=== PATIENT | male | born 1975 | race African-American/Black ===

== ENCOUNTER 2019-08-31 06:45 | Emergency (ER) | payer MEDICAID ==
[~2019-08-31] VITALS: Ht 172.7 cm; Wt 68.2 kg
[2019-08-31 06:57] VITALS: Ht 172.7 cm; Wt 68.2 kg
[2019-08-31 07:15] LABS: BASOPHILS 0.2 % (0-2); EOSINOPHILS 2.3 % (0-7); HEMOGLOBIN 14.8 g/dL (13.5-17.5); IMMATURE GRANULOCYTES 0.2 % (0-5); LYMPHOCYTES 30.9 % (15-50); MCHC 34.4 g/dL (31.0-37.0); MCV 92.9 fL (80.0-100.0); MEAN PLATELET VOLUME 10.5 fL (7.4-10.4); MONOCYTES 15.1 % (2-11); NEUTROPHILS 51.3 % (40-80); PLATELET COUNT 187 10x3/uL (130-400); RBC 4.63 10x6/uL (4.20-6.10); RDW 13.6 % (11.5-14.5); WBC 4.8 10x3/uL (4.8-10.8)
[2019-08-31 07:35] LABS: BILIRUBIN NEGATIVE (NEGATIVE); GLUCOSE NEGATIVE (NEGATIVE); KETONE NEGATIVE (NEGATIVE); NITRITE NEGATIVE (NEGATIVE); UROBILINOGEN 4 mg/dL (NORMAL)
[2019-08-31 07:38] LABS: BACTERIA FEW /hpf (NEGATIVE); CALCIUM OXALATE CRYSTALS 0-5 /hpf (NONE SEEN); RED CELLS - URINE 25-50 /hpf (0-5); WHITE CELLS - URINE RARE /hpf (NEGATIVE)
[2019-08-31 07:44] LABS: CALC OSMOLALITY 281 mosm/kg (275-300); CALCIUM 8.5 mg/dL (8.5-10.1); CHLORIDE - SERUM 106 mmol/L (98-107); CREATININE - SERUM 1.4 mg/dL (0.6-1.3); GLUCOSE 106 mg/dL (74-106); POTASSIUM - SERUM 3.2 mmol/L (3.5-5.1); SODIUM 141 mmol/L (136-145); UREA NITROGEN 16 mg/dL (7-18); eGFR NON AFRICAN AMERICAN 59 mL/min (90-120)
[2019-08-31 07:53] LABS: ALKALINE PHOSPHATASE 95 U/L (30-120); ALT (SGPT) 135 U/L (10-68); AMYLASE - SERUM 64 U/L (25-115); BILIRUBIN - TOTAL 0.56 mg/dL (0.2-1.3); LIPASE 137 U/L (73-393); TROPONIN-I < 0.017 ng/mL (0.000-0.060)
[2019-08-31] MEDS ORDERED: ZOFRAN ODT4 MG/UDTAB PO (09:55)
[2019-08-31 09:58] VITALS: BP 142/89
== END 2019-08-31 09:59 | disposition home or self-care (01) ==
LOC: D.ER 06:45
PROVIDERS: Emergency Medicine
DX: A08.4 Viral intestinal infection, unspecified (principal); E87.6 Hypokalemia; R91.1 Solitary pulmonary nodule; R11.2 Nausea with vomiting, unspecified; R10.9 Unspecified abdominal pain